=== PATIENT | male | born 1940 | race Caucasian/White ===

== ENCOUNTER 2016-06-15 11:21 | Emergency (ER) | payer MEDICARE ==
[2016-06-15 12:42] LABS: ABSOLUTE NEUTROPHIL COUNT 6.1 K/mm3 (1.8-7.7); BASO # 0.1 K/mm3 (0.0-0.2); BASO % 0.5 % (0.2-1.0); EOS # 0.2 (0.0-0.5); HEMATOCRIT 45.8 % (32.0-52.0); HEMOGLOBIN 14.5 gm/l (14.0-18.0); IMM NEUT # 0.1 K/mm3 (0-0.2); IMM NEUT% 0.6 % (0-1); LYMPH # 2.2 (1.0-4.8); LYMPH % 23.8 % (15-45); MEAN CORPUSCULAR HEMOGLOBIN 30.4 pg (27.0-31.0); MEAN CORPUSCULAR HGB CONC 31.7 g/dl (33.0-37.0); MEAN PLATELET VOLUME 11.2 fl (7.4-10.4); MONO # 0.7 (0.0-0.8); MONO % 7.8 % (4-12); NEUT % 65.3 % (43-75); PLATELET COUNT 223 K/mm3 (130-400); RED CELL DISTRIBUTION WIDTH 14.7 % (11.5-14.5)
--- NOTE | 2016-06-15 12:51 | CT ---
Exam: CT head without contrast COMPARISON: None INDICATION: Dizziness for several months. TECHNIQUE: CT examination of the head was obtained without contrast. FINDINGS: There is no acute intracranial hemorrhage. There is no abnormal intra or extra-axial fluid collection. There is no edema, mass effect or midline shift. Ventricles are normal in size. The visualized paranasal sinuses and mastoid air cells are well aerated. IMPRESSION: Negative CT head. Report was uploaded to the EMR at 1248 hours 06/15/2016.
[2016-06-15 13:04] LABS: ALBUMIN 3.6 gm/dL (3.5-5.7); CALCIUM 9.4 mg/dL (8.6-10.3); MAGNESIUM 2.2 mg/dL (1.9-2.7)
[2016-06-15 13:05] LABS: SPECIFIC GRAVITY 1.015 (1.001-1.030); URINE BILIRUBIN NEGATIVE (NEGATIVE); URINE BLOOD NEGATIVE (NEGATIVE); URINE GLUCOSE (UA) NEGATIVE (NEGATIVE); URINE LEUKOCYTE ESTERASE TRACE (NEGATIVE); URINE NITRITE NEGATIVE (NEGATIVE); URINE PROTEIN NEGATIVE (NEGATIVE); URINE UROBILINOGEN NORMAL (0-1 mg/dl)
[2016-06-15 13:10] LABS: URINE APPEARANCE CLEAR; URINE COLOR YELLOW
[2016-06-15 13:16] LABS: URINE BACTERIA 0; URINE EPITHELIAL CELLS RARE /hpf; URINE RBC 0-1 /hpf; URINE WBC NEG /hpf
[2016-06-15 13:20] LABS: TROPONIN I < 0.01 ng/ml (0.0-0.06)
[2016-06-15 13:24] LABS: CKMB ISOENZYME 0.9 ng/ml (0.6-6.3)
== END 2016-06-15 17:30 | disposition home or self-care (01) ==
LOC: ED 11:21
DX: R26.0 Ataxic gait (principal); R53.1 Weakness; R42 Dizziness and giddiness; F17.210 Nicotine dependence, cigarettes, uncomplicated